=== PATIENT | female | born 1965 | race Caucasian/White ===

== ENCOUNTER → 2016-06-16 | Outpatient (CLI) | payer BC ==
[~2016-06-16] MED LIST: ALBUAER2 INH; ALL60 PO; BCPILLS PO; ESCI10TA17 PO; LRT5 PO; SNG10 PO
--- NOTE | 2016-06-16 16:55 | DIAGNOSTIC IMAGING REPORT ---
L-SPINE MIN 4 VIEWS ROUTINE CLINICAL HISTORY: Low back pain COMPARISON STUDY: No previous studies for comparison. FINDINGS: There is a mild thoracolumbar scoliosis. There is mild fecal retention. There are 5 lumbar type vertebral bodies present. No fractures or subluxations are visualized. There are moderate degenerative changes present the L3-4 level with discogenic endplate sclerosis. IMPRESSION: Moderate degenerative changes at the L3-4 level. No acute fractures. Mild fecal retention. Electronically signed by: Jonnie Farr M.D. 06/16/2016 4:53 PM Dictated Date/Time: 06/16/2016 4:52 PM
== END | disposition home or self-care (01) ==
LOC: C.RAD 16:26
PROVIDERS: ATTEND Internal Medicine Pulmonary Disease
DX: M54.9 Dorsalgia, unspecified (principal)

== ENCOUNTER → 2017-03-15 | Outpatient (CLI) | payer BC | END | disposition home or self-care (01) | LOC: C.PAPS 09:52 | PROVIDERS: ATTEND Obstetrics & Gynecology | DX: Z01.419 Encounter for gynecological examination (general) (routine) without abnormal findings (principal) ==